=== PATIENT | male | born 1990 | race Caucasian/White ===

== ENCOUNTER 2016-05-23 13:09 | Emergency (ER) | payer OTHER ==
[2016-05-23 13:16] VITALS: BP 105/85
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
[2016-05-23] MEDS ORDERED: Bacitracin Oint 1 GM U/D Packet TOP ONE (14:35)
== END 2016-05-23 14:47 | disposition home or self-care (01) ==
LOC: LL.ED 13:09
DX: S61.212A Laceration without foreign body of right middle finger without damage to nail, initial encounter (principal); F17.210 Nicotine dependence, cigarettes, uncomplicated; W26.0XXA Contact with knife, initial encounter
CPT/HCPCS: 99282

== ENCOUNTER 2016-07-09 19:59 | Emergency (ER) | payer OTHER ==
[2016-07-09] MEDS ORDERED: Sodium Chloride 0.9% 10 ML Syringe FLUSH PRN (20:02)
[2016-07-09] MEDS ORDERED: HYDROmorphone 1 MG/ML Syringe IV ONE ×2 (20:06→21:08)
[2016-07-09 20:35] LABS: CHLORIDE,CL 102 mmol/L (98-107); SODIUM,NA 138 mmol/L (136-145)
[2016-07-09] MEDS ORDERED: Morphine 4 MG/ML Syringe IVPUSH ONE (21:03)
[2016-07-09] MEDS ORDERED: Ketorolac 30 MG/ML SDV IVPUSH ONE (21:21)
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
[2016-07-09] MEDS ORDERED: Sodium Chloride 0.9% 1,000 ML IV SCH (21:52)
[2016-07-09] MEDS ORDERED: Iopamidol 612 MG/ML 100 ML Bottle IVPUSH ONE (22:16)
[2016-07-10 00:31] VITALS: BP 131/74
== END 2016-07-09 22:12 ==
LOC: LL.ED 19:59
DX: S42.012A Anterior displaced fracture of sternal end of left clavicle, initial encounter for closed fracture (principal); S22.41XA Multiple fractures of ribs, right side, initial encounter for closed fracture; J93.9 Pneumothorax, unspecified; F17.210 Nicotine dependence, cigarettes, uncomplicated; Z88.6 Allergy status to analgesic agent; V29.9XXA Motorcycle rider (driver) (passenger) injured in unspecified traffic accident, initial encounter
CPT/HCPCS: 36415; 70450; 71010; 71260; 72125; 74177; 80053; 85025; 96374; 96375; 96376; 99291; 99292; G0480; J1170; J1885; J7030; Q9967; 25600

== ENCOUNTER 2017-04-21 12:26 | Day surgery (SDC) | payer OTHER ==
[2017-04-21] MEDS ORDERED: Lactated Ringers 1,000 ML IV SCH (12:30)
[2017-04-21] MEDS ORDERED: Sodium Chloride 0.9% 10 ML Syringe FLUSH PRN (12:30)
[2017-04-21] MEDS ORDERED: Midazolam 1 MG/ML 2 ML SDV ONE ×2 (13:46→14:17)
[2017-04-21] MEDS ORDERED: Propofol 200 MG/20 ML SDV ONE ×2 (13:46→14:17)
[2017-04-21] MEDS ORDERED: fentaNYL 100 MCG/2 ML SDV ONE ×2 (13:46→14:17)
--- NOTE | 2017-04-21 14:00 | PCM.PN ---
- General Info Date of Service: 04/21/17 - Review of Systems Systems Review Comment:: 26-year-old male referred by Gisela Nash for EGD. The patients symptoms are that of a feeling of a possible lump in the right side of his throat which is made worse when he smokes. He denies any change in voice or cough. The sensation subsides when he does not smoke. The proposed upper endoscopy is discussed with the patient. This included discussion that upper endoscopy may not allow full visualization of the throat area but an attempt will be made to do the best exam possible. Options are reviewed and the patient agrees to proceed. There has been no significant change in his health status since his last exam. - Patient Data Vitals - Most Recent: Last Vital Signs Temp 96.8 F 04/21/17 13:16 Pulse 60 04/21/17 13:16 Resp 20 04/21/17 13:16 BP 135/66 04/21/17 13:16 Pulse Ox 97 04/21/17 13:16 Weight - Most Recent: 106.594 kg Med Orders - Current: Current Medications Lactated Ringer's (Ringers, Lactated) 1,000 mls @ 125 mls/hr IV ASDIRECTED TERRY Last Admin: 04/21/17 13:25 Dose: 125 mls/hr Sodium Chloride (Saline Flush) 10 ml FLUSH ASDIRECTED PRN PRN Reason: Keep Vein Open Discontinued Medications Fentanyl (Sublimaze) Confirm Administered Dose 100 mcg .ROUTE .STK-MED ONE Stop: 04/21/17 13:47 Midazolam HCl (Versed 1 Mg/Ml) Confirm Administered Dose 4 mg .ROUTE .STK-MED ONE Stop: 04/21/17 13:47 Propofol (Diprivan 20 Ml) Confirm Administered Dose 200 mg .ROUTE .STK-MED ONE Stop: 04/21/17 13:47 - Problem List Review Problem List Initiated/Reviewed/Updated: Yes - My Orders Last 24 Hours: My Active Orders 04/21/17 12:30 Patient Status [ADT] Routine Peripheral IV Care [RC] . DIRECTED Verify Patient Consent Obtain [RC] ASDIRECTED Lactated Ringers [Ringers, Lactated] 1,000 ml IV ASDIRECTED Sodium Chloride 0.9% [Saline Flush] 10 ml FLUSH ASDIRECTED PRN Peripheral IV Insertion Adult [OM.PC] Routine - Assessment Assessment:: Possible foreign body in the throat - Plan Plan:: EGD
[2017-04-21] MEDS ORDERED: Lidocaine 2% 5 ML SDV ONE (14:17)
--- NOTE | 2017-04-21 14:36 | PCM.OPNOTE ---
- General Post-Op/Procedure Note Date of Surgery/Procedure: 04/21/17 Operative Procedure(s): EGD Findings: Normal exam Pre Op Diagnosis: possible foreign body in throat Post-Op Diagnosis: Normal EGD Anesthesia Technique: MAC Primary Surgeon: Emeterio Villanueva Pathology: none Output, Urine Amount: 0 EBL in mLs: 0 Complications: None Condition: Good
[2017-04-21 17:43] VITALS: BP 102/51
--- NOTE | 2017-04-22 08:09 | OR ---
Date of Procedure: 04/21/2017 PREOPERATIVE DIAGNOSIS: Possible foreign body of the throat. POSTOPERATIVE DIAGNOSIS: Normal upper endoscopy. INDICATIONS FOR SURGERY: This 26-year-old male has, for the last year, felt a sensation in his throat of a possible foreign body or irritation, which is exacerbated with smoking. Examination to evaluate this area and esophagus is planned. FINDINGS: No sign of foreign body in the oral or hypopharynx are identified. The vocal cords appeared normal as did the throat area as could be viewed with the gastroscope. Esophagus, stomach, and duodenum also appeared normal, no visible abnormalities or narrowing. DESCRIPTION OF PROCEDURE: The patient was taken to the operating room. He was given intravenous sedation and his throat was topically anesthetized. The Olympus gastroscope was advanced into the mouth and carefully advanced toward the back of the throat. Examination as could be achieved with this type of scope was then carried out of the area of the vocal cords, throat, and the region to the left and right sides of the vocal cords. The region of the cricopharyngeus was also examined and then the scope was advanced into the esophagus and it was advanced under direct visualization through the esophagus, stomach, and into the duodenum, where examination to the 3rd portion was performed. The duodenum was carefully examined as was the stomach including retroflexed examination of the fundus. The GE junction and esophagus were then re-examined as the scope was withdrawn. Again, no foreign body or abnormality was seen in the structures viewed during the exam today. After the examination was completed, the scope was removed and the patient was taken from the operating room in satisfactory condition. ESTIMATED BLOOD LOSS: Zero. COMPLICATIONS: None. PROGNOSIS: Good. ALEXIA Villanueva MD /[id number]
== END 2017-04-21 15:52 | disposition home or self-care (01) ==
LOC: LL.SDS 12:26
PROVIDERS: ATTEND Surgery
DX: R09.89 Other specified symptoms and signs involving the circulatory and respiratory systems (principal); Z88.8 Allergy status to other drugs, medicaments and biological substances; F17.210 Nicotine dependence, cigarettes, uncomplicated; Z79.899 Other long term (current) drug therapy
CPT/HCPCS: 43235; J2250; J2704; J3010; J7120

== ENCOUNTER 2021-10-26 15:59 | Emergency (ER) | payer OTHER ==
[2021-10-26] MEDS ORDERED: Ketorolac 30 MG/ML SDV IVPUSH ONE (16:17)
[2021-10-26 20:34] VITALS: BP 131/82; PULSE 84
== END 2021-10-26 18:40 | disposition home or self-care (01) ==
LOC: LL.ED 15:59
DX: S82.831A Other fracture of upper and lower end of right fibula, initial encounter for closed fracture (principal); F17.210 Nicotine dependence, cigarettes, uncomplicated; E66.9 Obesity, unspecified; Z68.30 Body mass index [BMI] 30.0-30.9, adult; Z88.5 Allergy status to narcotic agent; W18.30XA Fall on same level, unspecified, initial encounter; Y93.72 Activity, wrestling
CPT/HCPCS: 29515; 73610-RT; 96374; 99283-25; J1885